=== PATIENT | female | born 1955 | race Caucasian/White ===

== ENCOUNTER 2020-02-18 15:14 | Observation (INO) ==
[2020-02-18] MEDS ORDERED: *HR* FentaNYL (PF) 100 MCG/2 ML VIAL IVP ONE (15:47)
[2020-02-18] MEDS ORDERED: Isovue-370 500 ML BOTTLE IVP ONE (15:47)
[2020-02-18 16:19] LABS: Basophils # 0.1 K/mcL (0.0-0.2); Basophils % 0.9 %; Eosinophils # 0.1 K/mcL (0.0-0.6); Eosinophils % 1.9 %; Hematocrit 42.7 % (35.3-44.9); Hemoglobin 14.4 g/dL (11.5-15.4); Immature Granulocytes % 0.1 % (0-4); Lymphocytes # 2.3 K/mcL (0.6-4.6); Lymphocytes % 33.5 %; Mean Corpuscular HGB Conc 33.7 g/dL (31.6-35.5); Mean Corpuscular Volume 94.9 fL (83.0-100.0); Mean Platelet Volume 11.4 fL (9.4-12.4); Monocytes # 0.5 K/mcL (0.0-1.3); Monocytes % 6.7 %; Neutrophils # 3.8 K/mcL (1.6-8.9); Platelet Count 237 K/mcL (140-400); Red Cell Distribution Width 12.7 % (11.5-14.5); Segmented Neutrophils % 56.9 %; White Blood Count 6.7 K/mcL (4.3-11.1)
[2020-02-18 16:22] LABS: Prothrombin Time 11.1 Seconds (9.4-12.1)
[2020-02-18 16:24] LABS: Activated Partial Thrombo Time 34.1 Seconds (26.0-36.0)
[2020-02-18 16:45] LABS: Alanine Aminotransferase 261 Units/L (7-52); Albumin 4.3 g/dL (3.5-5.7); Albumin/Globulin Ratio 1.5 (1.1-2.2); Alkaline Phosphatase 146 Units/L (34-104); Aspartate Amino Transferase 362 Units/L (13-39); BUN/Creatinine Ratio 15 (6-26); Bilirubin,Direct 1.2 mg/dL (0.0-0.2); Bilirubin,Indirect 0.4 mg/dL (0.0-1.0); Bilirubin,Total 1.6 mg/dL (0.3-1.0); Blood Urea Nitrogen 14 mg/dL (8-23); Calcium 9.6 mg/dL (8.6-10.3); Carbon Dioxide 27 mEq/L (23-29); Chloride 106 mEq/L (98-107); Globulin 2.9 g/dL (2.4-3.5); Glucose 107 mg/dL (70-105); Lipase 35 Units/L (11-82); Osmolality,Calculated 289 (280-300); Potassium 4.2 mEq/L (3.5-5.1); Sodium 139 mEq/L (136-145); Total Protein 7.2 g/dL (6.4-8.9); Troponin I < 0.03 ng/mL (< 0.04); eGFR For African Americans > 60 (> 60); eGFR For Non-African Americans 60 (> 60)
[2020-02-18] MEDS ORDERED: cefTRIAXone 1,000 MG in Water for inj. (sterile) 10 ML IVP ONE (17:40)
[2020-02-18] MEDS ORDERED: *HR* OxyCODONE/APAP 10/325 TABLET PO PRN (21:12)
[2020-02-18] MEDS ORDERED: Ondansetron 4 MG/2 ML VIAL IVP PRN (21:13)
[2020-02-18] MEDS ORDERED: 0.9 % Sodium Chloride 1,000 ML IVC SCH (21:15)
[2020-02-18] MEDS ORDERED: Lidocaine -MPF 2% 2 ML VIAL ONE (23:00)
[2020-02-18] MEDS ORDERED: *HR* Midazolam HCl 2 MG/2 ML VIAL ONE (23:00)
[2020-02-18] MEDS ORDERED: *HR* Propofol 200 MG/20 ML VIAL IVP ONE (23:00)
[2020-02-18] MEDS ORDERED: *HR* Succinylcholine 200 MG/10 ML VIAL IVP ONE (23:00)
[2020-02-18] MEDS ORDERED: *HR* FentaNYL (PF) 100 MCG/2 ML VIAL ONE (23:00)
[2020-02-18] MEDS ORDERED: *HR* Rocuronium Bromide 50 MG/5 ML VIAL ONE (23:00)
[2020-02-18] MEDS ORDERED: Isovue-300 50ML VIAL ONE (23:21)
[2020-02-18] MEDS ORDERED: Famotidine 20 MG/2 ML VIAL ONE (23:21)
[2020-02-18] MEDS ORDERED: Acetaminophen IV 1,000 MG/100 ML BAG ONE (23:21)
[2020-02-18] MEDS ORDERED: CefOXitin 1,000 MG VIAL ONE (23:21)
[2020-02-18] MEDS ORDERED: Lidocaine -MPF 4% 5 ML AMPUL ONE (23:45)
[2020-02-19] MEDS ORDERED: *HR* Labetalol 20 MG/4 ML SYRINGE IVP PRN (00:35)
[2020-02-19] MEDS ORDERED: *HR* OxyCODONE Immed Rel 5 MG TABLET PO PRN (00:35)
[2020-02-19] MEDS ORDERED: *HR* Promethazine 25 MG/ML VIAL IVP PRN (00:35)
[2020-02-19] MEDS ORDERED: *HR* HYDROmorphone 2 MG TABLET PO PRN (00:35)
[2020-02-19] MEDS ORDERED: Pregabalin 75 MG CAPSULE PO ONE (00:35)
[2020-02-19] MEDS ORDERED: *HR* Magnesium Sulfate 1 GM/2 ML VIAL ONE (00:40)
[2020-02-19] MEDS ORDERED: Neostigmine Methylsulfate 3 MG/3 ML SYRINGE ONE (01:15)
[2020-02-19] MEDS ORDERED: Ipratropium/Albuterol Neb 3 ML IH ONE (01:40)
[2020-02-19] MEDS: *HR* HYDROmorphone PF 0.5 MG/0.5 ML SYRINGE IVP PRN ×2 (01:45→02:30)
[2020-02-19] MEDS ORDERED: Ketorolac 30 MG/ML VIAL IVP ONE (02:00)
[2020-02-19] MEDS ORDERED: *HR* OxyCODONE/APAP 10/325 TABLET PO PRN (03:02)
[2020-02-19] MEDS ORDERED: Ondansetron 4 MG/2 ML VIAL IVP PRN (03:02)
[2020-02-19] MEDS ORDERED: 0.9 % Sodium Chloride 1,000 ML IVC SCH (03:02)
[2020-02-19] MEDS ORDERED: *HR* Heparin 5,000 UNIT/ML VIAL SQ SCH (06:00)
[2020-02-19] MEDS ORDERED: lamoTRIgine 100 MG TABLET PO SCH (09:00)
[2020-02-19 10:54] VITALS: BP 111/70
== END 2020-02-19 14:53 | disposition home or self-care (01) ==
LOC: EMEROOARM 15:14 → 3ANU 15:14
PROVIDERS: ADMIT Surgery; ATTEND Surgery